=== PATIENT | female | born 1950 | race Caucasian/White ===

== ENCOUNTER → 2017-01-06 | Outpatient (CLI) | payer MEDICARE, OTHER ==
--- NOTE | 2017-01-06 12:14 | RADIOLOGY REPORT (SQ) ---
EXAM DESCRIPTION: MRI LUMBAR SPINE WITHOUT COMPLETED DATE/TIME: 01/06/2017 10:39 am REASON FOR STUDY: M54.5 LOW BACK PAIN M54.5 LOW BACK PAIN COMPARISON: None. TECHNIQUE: Sagittal and Axial imaging includes T1, T2, STIR and gradient echo sequences. Coronal T2/ HASTE imaging. LIMITATIONS: None. FINDINGS: VISUALIZED UPPER ABDOMEN: Limited evaluation. No acute or suspicious findings suggested. SEGMENTATION: No transitional anatomy. The lowest well-developed disc space is labeled L5-S1. ALIGNMENT: Very mild retrolisthesis of L1 over L2 VERTEBRAE: Intact. BONE MARROW: Normal. No marrow replacement or reactive changes. DISC SIGNAL: Diffuse decreased T2 weighted intervertebral disc signal. Disc space loss of height fro m T10-11 through L3-4. POSTERIOR ELEMENTS: Generally intact. No pars defect evident. HARDWARE: None in the spine. CORD AND CONUS: Normal in size and signal intensity. Conus at the T12-L1 level. SOFT TISSUES: No aortic aneurysm seen. No bulky retroperitoneal adenopathy or mass. No paraspinal mas s or fluid. T10-11: At the upper edge of the field of view. Borderline central canal narrowing, mild left alejandro inal narrowing from disc bulge and facet hypertrophy. T11-12: Minimal diffuse posterior disc bulging and mild bilateral facet and ligament hypertrophy. N o significant central or foraminal stenosis. T12-L1: Mild diffuse posterior disc bulge, moderate bilateral facet and ligament hypertrophy. Borde rline central canal narrowing. No right foraminal narrowing. Mild left foraminal narrowing. L1-L2: Broad diffuse posterior disc bulging and bony spurring with moderate bilateral facet and ligam ent hypertrophy. Borderline central canal narrowing. Moderate bilateral inferior foraminal narrowin g without exiting L1 nerve root impingement. L2-L3: Broad diffuse posterior disc bulge and bony spurring. Moderate bilateral facet and ligament h ypertrophy. Borderline central canal narrowing. Mild bilateral inferior foraminal narrowing without exiting L2 nerve root impingement. L3-L4: Mild central canal narrowing results from broad diffuse posterior disc bulge and bony spurring and moderate bilateral facet and ligament hypertrophy. Flattening of the thecal sac into a triangul ar shape best shown on axial T2 image 16. Mild bilateral foraminal narrowing without exiting L3 nerv e root impingement. L4-L5: Broad diffuse posterior disc bulge and moderate bilateral facet and ligament hypertrophy. No central stenosis. No significant foraminal narrowing. L5-S1: No significant posterior disc bulge. Moderate bilateral facet hypertrophy. No central or for aminal encroachment. SACRUM: Visualized upper sacrum intact. OTHER: No other significant findings. IMPRESSION: Mild diffuse degenerative changes as above TECHNICAL DOCUMENTATION: JOB ID: [id number] [employer]- All Rights Reserved
== END ==
LOC: RAD 10:04
PROVIDERS: ATTEND Orthopaedic Surgery
DX: M54.5 Low back pain (principal)
CPT/HCPCS: 72148